=== PATIENT | female | born 1980 | race Caucasian/White ===

== ENCOUNTER → 2020-06-24 11:04 | Outpatient (BNVA) | payer SELFPAY | PROVIDERS: PCP Registered Nurse; Visit Provider Internal Medicine Rheumatology | DX: M25.50 Pain in unspecified joint (principal); Z79.899 Other long term (current) drug therapy; Z11.59 Encounter for screening for other viral diseases; Z11.1 Encounter for screening for respiratory tuberculosis; R21 Rash and other nonspecific skin eruption; R55 Syncope and collapse; Z85.41 Personal history of malignant neoplasm of cervix uteri; R76.8 Other specified abnormal immunological findings in serum; F17.210 Nicotine dependence, cigarettes, uncomplicated | CPT/HCPCS: 36415; 81001; 82570; 84156; 99204 ==

== ENCOUNTER → 2020-07-02 09:03 | Outpatient (BNVA) | payer OTHER, SELFPAY | PROVIDERS: PCP Registered Nurse; Visit Provider Internal Medicine Rheumatology | DX: R76.8 Other specified abnormal immunological findings in serum (principal); Z79.899 Other long term (current) drug therapy; Z11.59 Encounter for screening for other viral diseases; Z11.1 Encounter for screening for respiratory tuberculosis | CPT/HCPCS: 82306; 82728; 85651; 86038; 86140; 86225; 86235; 86376; 86431; 86480; 86704; 86803; 87340 ==

== ENCOUNTER → 2020-07-21 15:43 | Outpatient (BNVA) | payer OTHER, SELFPAY | PROVIDERS: PCP Registered Nurse; Visit Provider Obstetrics & Gynecology | DX: C53.9 Malignant neoplasm of cervix uteri, unspecified (principal) | CPT/HCPCS: 83001; 88175 ==

== ENCOUNTER 2020-11-04 10:37 | Outpatient (CLI) | payer OTHER, SELFPAY ==
--- NOTE | 2020-11-04 10:43 | CT_ITS ---
WS: [id number] CT ABDOMEN PELVIS TECHNIQUE: Noncontrast CT of the abdomen and contrast-enhanced CT of the abdomen and pelvis with rachel nal and sagittal reformatted images. CLINICAL INFORMATION: History of cervical cancer COMPARISON: None. DLP: 1063.[address] scans at [facility] use at least one of these dose optimization techniques: automat ed exposure control; mA and/or kV adjustment per patient size (includes targeted exams where dose is matched to clinical indication); or iterative reconstruction. FINDINGS: Mild diffuse fatty infiltration liver. Hepatomegaly. Liver measures 18.1 cm pole to pole. N ormal spleen. Lung bases are well aerated. Normal pancreas. Portal vein and splenic vein are patent. Normal gallbladder. Adrenal glands are normal. Normal renal parenchymal enhancement. No hydronephrosi s. Retroaortic left renal vein. Normal caliber abdominal aorta. Prior postoperative changes hysterectomy. Sigmoid colon appears normal. Normal bladder. No evidence o f high-grade small or large bowel obstruction. Postoperative changes involving the cecum likely due t o prior appendectomy. No pelvic sidewall or inguinal lymphadenopathy. Normal visualized lumbar spine and sacrum. CT/CT abdomen pelvis wo/w [id number] IMPRESSION: 1. Prior postoperative changes hysterectomy. 2. No adenopathy in the abdomen or pelvis. No pelvic sidewall or inguinal lymp hadenopathy. 3. Normal bladder and pelvic soft tissues. 4. Hepatomegaly with diffuse fatty infiltration. 5. Postoperative changes involving the cecum. 6. No other significant findings.
[2020-11-04] MEDS: iohexol 300 mg/mL 100 mL Btl IV (11:04)
== END 2020-11-04 10:38 | disposition home or self-care (01) ==
LOC: RADWPI 10:42
PROVIDERS: PCP Registered Nurse; Visit Provider Obstetrics & Gynecology
DX: Z85.41 Personal history of malignant neoplasm of cervix uteri (principal); R16.0 Hepatomegaly, not elsewhere classified; K76.89 Other specified diseases of liver
CPT/HCPCS: 74178; Q9967

== ENCOUNTER → 2020-11-19 14:02 | Outpatient (BNVA) | payer OTHER, SELFPAY | PROVIDERS: PCP Registered Nurse; Visit Provider Internal Medicine Rheumatology | DX: M19.90 Unspecified osteoarthritis, unspecified site (principal); R76.8 Other specified abnormal immunological findings in serum; R55 Syncope and collapse; N95.1 Menopausal and female climacteric states; Z85.41 Personal history of malignant neoplasm of cervix uteri; F17.210 Nicotine dependence, cigarettes, uncomplicated | CPT/HCPCS: 99214 ==

== ENCOUNTER → 2021-10-29 10:26 | Outpatient (BNVA) | payer OTHER, SELFPAY | PROVIDERS: PCP Registered Nurse; Visit Provider Registered Nurse Neonatal Intensive Care | DX: Z20.822 Contact with and (suspected) exposure to COVID-19 (principal) | CPT/HCPCS: 87635 ==